=== PATIENT | female | born 1990 | race Caucasian/White ===

== ENCOUNTER 2018-12-12 01:08 | Emergency (ER) | payer OTHER ==
[~2018-12-12] VITALS: Ht 170.2 cm; Wt 100.0 kg
[~2018-12-12 01:08] MED LIST: CLON.5 PO; PROM25 PO
[2018-12-12 02:48] LABS: BASOPHILS % (AUTO) 0.6 % (0.0-2.0); HEMATOCRIT 40.1 % (36-46); HEMOGLOBIN 13.3 g/dL (12.0-16.0); LYMPHOCYTES # (AUTO) 3.1 K/uL (1.0-4.8); LYMPHOCYTES % (AUTO) 33.1 % (22.0-44.0); MEAN CORPUSCULAR HEMOGLOBIN 29.7 pg (26.0-34.0); MEAN CORPUSCULAR HGB CONC 33.2 G/dL (31.0-37.0); MEAN CORPUSCULAR VOLUME 90 fL (80-100); MONOCYTES # (AUTO) 0.5 K/uL (0.1-1.0); MONOCYTES % (AUTO) 5.5 % (2.0-9.0); NEUTROPHILS # (AUTO) 5.6 K/uL (1.8-7.7); NEUTROPHILS % (AUTO) 59.8 % (40.0-70.0); PLATELET COUNT (AUTO) 192 K/uL (150-450); RED BLOOD CELL COUNT(AUTO) 4.47 MIL/uL (4.00-5.20); RED CELL DISTRIBUTION WIDTH 12.9 % (11.5-14.5)
[2018-12-12 02:51] LABS: ANION GAP 8 mmol/L (8-16); CALCIUM, TOTAL 9.4 mg/dL (8.8-10.5); CARBON DIOXIDE 26 mmol/L (22-29); CHLORIDE 105 mmol/L (98-107); GLOMERULAR FILTR. RATE CALC > 60 mL/min (>60); GLUCOSE,RANDOM 101 mg/dL (70-110); POTASSIUM 3.5 mmol/L (3.5-5.1); SODIUM SERUM 139 mmol/L (136-145); UREA NITROGEN, BLOOD 17 mg/dL (7-18)
[2018-12-12] MEDS ORDERED: KETOROLAC TROMETHAMINE 30 MG/ML VIAL IM ONE (03:00)
[2018-12-12] MEDS ORDERED: ONDANSETRON HCL 4 MG TABLET PO ONE (03:00)
[2018-12-12 03:02] LABS: ALANINE AMINOTRANSFERASE 19 U/L (12-78); ALBUMIN 3.6 g/dL (3.4-5.0); ALKALINE PHOSPHATASE 65 U/L (46-116); ASPARTATE AMINOTRANSFERASE 14 U/L (15-37); BILIRUBIN,TOTAL 0.2 mg/dL (0.1-1.0); HCG,QUANTITATIVE < 1 mIU/mL (0-6); LIPASE 151 U/L (73-393); TOTAL PROTEIN, SERUM 7.3 g/dL (6.4-8.2)
[2018-12-12 03:03] VITALS: BP 131/74
== END 2018-12-12 03:41 | disposition home or self-care (01) ==
LOC: EMS 01:10
DX: K52.9 Noninfective gastroenteritis and colitis, unspecified (principal); F12.90 Cannabis use, unspecified, uncomplicated
CPT/HCPCS: 36415; 80053; 83690; 84702; 85025; 96372; 99283; J1885; Q0162

== ENCOUNTER 2022-10-04 23:41 | Emergency (ER) | payer OTHER | END 2022-10-05 00:39 | disposition left against medical advice (07) | LOC: EMS 23:41 | DX: R21 Rash and other nonspecific skin eruption (principal); Z53.21 Procedure and treatment not carried out due to patient leaving prior to being seen by health care provider | CPT/HCPCS: 99281; Z7502 ==

== ENCOUNTER 2024-06-03 14:06 | Emergency (ER) | payer OTHER ==
[~2024-06-03] VITALS: Ht 170.2 cm; Wt 130.0 kg
[2024-06-03] MEDS ORDERED: LOSA-30 PO (14:10)
[2024-06-03 14:12] VITALS: TEMP 99
[2024-06-03] MEDS: FentaNYL CITRATE PF 100 MCG/2 ML VIAL IVP ONE ×3 (15:45→17:52)
[2024-06-03] MEDS: ONDANSETRON HCL 4 MG/2 ML VIAL IVP ONE ×2 (15:45→17:07)
[2024-06-03] MEDS: SODIUM CHLORIDE 0.9% 1,000 ML IV ONE (15:45)
[2024-06-03] MEDS: KETOROLAC TROMETHAMINE 30 MG/ML VIAL IVP ONE ×2 (15:45→20:04)
[2024-06-03 16:23] LABS: BASOPHILS % (AUTO) 0.4 % (0.0-2.0); EOSINOPHILS % (AUTO) 0 % (1.0-6.0); HEMATOCRIT 42.1 % (36-46); HEMOGLOBIN 13.7 g/dL (12.0-16.0); LYMPHOCYTES # (AUTO) 1.1 K/uL (1.0-4.8); LYMPHOCYTES % (AUTO) 8.3 % (22.0-44.0); MEAN CORPUSCULAR HEMOGLOBIN 28.9 pg (26.0-34.0); MEAN CORPUSCULAR HGB CONC 32.5 G/dL (31.0-37.0); MEAN CORPUSCULAR VOLUME 89 fL (80-100); MONOCYTES # (AUTO) 0.2 K/uL (0.1-1.0); MONOCYTES % (AUTO) 1.4 % (2.0-9.0); PLATELET COUNT (AUTO) 222 K/uL (150-450); RED BLOOD CELL COUNT(AUTO) 4.73 MIL/uL (4.00-5.20); RED CELL DISTRIBUTION WIDTH 13.5 % (11.5-14.5); WHITE BLOOD COUNT (AUTO) 13.4 K/uL (4.5-11.0)
[2024-06-03 16:25] LABS: NEUTROPHILS % (AUTO) 89.9 % (40.0-70.0)
[2024-06-03 16:35] LABS: ANION GAP 11 mmol/L (8-16); CALCIUM, TOTAL 8.9 mg/dL (8.8-10.5); CARBON DIOXIDE 26 mmol/L (22-29); CHLORIDE 105 mmol/L (98-107); CREATININE 0.64 mg/dL (0.60-1.30); GLOMERULAR FILTR. RATE CALC > 60 mL/min (>60); GLUCOSE,RANDOM 117 mg/dL (70-110); POTASSIUM 3.6 mmol/L (3.5-5.1); SODIUM SERUM 142 mmol/L (136-145); UREA NITROGEN, BLOOD 13 mg/dL (7-18)
[2024-06-03 16:39] LABS: RBC MORPHOLOGY COMMENT NORMAL RBC MORPH
[2024-06-03 16:47] LABS: ALANINE AMINOTRANSFERASE 32 U/L (12-78); ALBUMIN 3.9 g/dL (3.4-5.0); ALKALINE PHOSPHATASE 97 U/L (46-116); ASPARTATE AMINOTRANSFERASE 18 U/L (15-37); BILIRUBIN,TOTAL 0.3 mg/dL (0.1-1.0); HCG,QUANTITATIVE < 1 mIU/mL (0-6); LIPASE 32 U/L (16-77)
[2024-06-03] MEDS: METOCLOPRAMIDE HCL 5 MG/ML 2 ML VIAL IVP ONE (17:52)
[2024-06-03] MEDS: MetroNIDAZOLE 250 MG TABLET PO ONE (18:57)
[2024-06-03] MEDS: LEVOFLOXACIN 500 MG/D5% WATER 100 ML IV ONE (18:58)
[2024-06-03] MEDS: MetroNIDAZOLE 250 MG/NACL 50 ML IV ONE (20:03)
[2024-06-03] MEDS: DiphenhydrAMINE HCL 50 MG/ML VIAL IVP ONE (20:04)
[2024-06-03] MEDS ORDERED: LEVO-72 PO (20:42)
[2024-06-03] MEDS ORDERED: ONDA-104 PO (20:42)
[2024-06-03] MEDS ORDERED: HYDR-4062 PO (20:42)
[2024-06-03 21:03] VITALS: BP 139/90; PULSE 89; RESP 18; O2SAT 96
== END 2024-06-03 21:46 | disposition home or self-care (01) ==
LOC: EMS 14:06
DX: K52.9 Noninfective gastroenteritis and colitis, unspecified (principal); F12.90 Cannabis use, unspecified, uncomplicated; E66.01 Morbid (severe) obesity due to excess calories; Z79.899 Other long term (current) drug therapy; Z87.19 Personal history of other diseases of the digestive system; Z90.49 Acquired absence of other specified parts of digestive tract; Z98.890 Other specified postprocedural states
CPT/HCPCS: 99285; 74176; 96375; 96365; 96367; 96361; 80048; 80076; 83690; 83735; 84702; 85025; 36415; 93005; 96376; J1200; J3010; J1885; J1956; J2765; J3490; J2405; J7030

== ENCOUNTER 2024-06-05 08:44 | Emergency (ER) | payer OTHER ==
[~2024-06-05] VITALS: Ht 170.2 cm; Wt 129.6 kg
[~2024-06-05 08:44] MED LIST changes: -CLON.5 PO; +HYDR-4062 PO; +LEVO-72 PO; +LOSA-30 PO; +ONDA-104 PO; -PROM25 PO
[2024-06-05 08:46] VITALS: TEMP 98.4
[2024-06-05] MEDS ORDERED: LOSA-382 PO (08:51)
[2024-06-05] MEDS ORDERED: ONDANSETRON HCL 4 MG/2 ML VIAL IVP ONE (09:15)
[2024-06-05 09:36] LABS: BASOPHILS % (AUTO) 0.5 % (0.0-2.0); EOSINOPHILS % (AUTO) 0.2 % (1.0-6.0); HEMATOCRIT 39.9 % (36-46); HEMOGLOBIN 13.4 g/dL (12.0-16.0); LYMPHOCYTES # (AUTO) 1.5 K/uL (1.0-4.8); LYMPHOCYTES % (AUTO) 17.7 % (22.0-44.0); MEAN CORPUSCULAR HEMOGLOBIN 29.9 pg (26.0-34.0); MEAN CORPUSCULAR HGB CONC 33.4 G/dL (31.0-37.0); MEAN CORPUSCULAR VOLUME 89 fL (80-100); MONOCYTES # (AUTO) 0.3 K/uL (0.1-1.0); MONOCYTES % (AUTO) 3.4 % (2.0-9.0); NEUTROPHILS # (AUTO) 6.8 K/uL (1.8-7.7); NEUTROPHILS % (AUTO) 78.2 % (40.0-70.0); PLATELET COUNT (AUTO) 208 K/uL (150-450); RED BLOOD CELL COUNT(AUTO) 4.47 MIL/uL (4.00-5.20); RED CELL DISTRIBUTION WIDTH 13.4 % (11.5-14.5); WHITE BLOOD COUNT (AUTO) 8.7 K/uL (4.5-11.0)
[2024-06-05 09:44] LABS: ANION GAP 10 mmol/L (8-16); CALCIUM, TOTAL 8.3 mg/dL (8.8-10.5); CARBON DIOXIDE 26 mmol/L (22-29); CHLORIDE 103 mmol/L (98-107); CREATININE 0.71 mg/dL (0.60-1.30); GLOMERULAR FILTR. RATE CALC > 60 mL/min (>60); GLUCOSE,RANDOM 109 mg/dL (70-110); POTASSIUM 3.3 mmol/L (3.5-5.1); SODIUM SERUM 139 mmol/L (136-145); UREA NITROGEN, BLOOD 15 mg/dL (7-18)
[2024-06-05 09:55] LABS: ALANINE AMINOTRANSFERASE 26 U/L (12-78); ALBUMIN 3.7 g/dL (3.4-5.0); ALKALINE PHOSPHATASE 88 U/L (46-116); ASPARTATE AMINOTRANSFERASE 20 U/L (15-37); BILIRUBIN,TOTAL 0.5 mg/dL (0.1-1.0); HCG,QUANTITATIVE < 1 mIU/mL (0-6); LIPASE 82 U/L (16-77); TOTAL PROTEIN, SERUM 7.6 g/dL (6.4-8.2)
[2024-06-05] MEDS: METOCLOPRAMIDE HCL 5 MG/ML 2 ML VIAL IVP ONE (10:02)
[2024-06-05] MEDS: RINGERS SOLUTION,LACTATED 1,000 ML IV ONE (10:02)
[2024-06-05] MEDS: MORPHINE SULFATE 4 MG/ML SYRINGE IVP ONE (10:41)
[2024-06-05] MEDS: POTASSIUM CHLORIDE 10% 40 MEQ/30 ML LIQUID UDCUP PO ONE (10:41)
[2024-06-05] MEDS: DICYCLOMINE HCL 10 MG CAPSULE PO ONE (11:20)
[2024-06-05 11:23] VITALS: BP 176/118; PULSE 74; RESP 16; O2SAT 97
[2024-06-05] MEDS: LEVOFLOXACIN 500 MG TABLET PO ONE (13:03)
[2024-06-05] MEDS ORDERED: DICY-1 PO (13:10)
== END 2024-06-05 13:33 | disposition home or self-care (01) ==
LOC: EMS 08:45
DX: K52.9 Noninfective gastroenteritis and colitis, unspecified (principal); F12.90 Cannabis use, unspecified, uncomplicated; E87.6 Hypokalemia; Z90.49 Acquired absence of other specified parts of digestive tract; Z79.899 Other long term (current) drug therapy
CPT/HCPCS: 99284; 96374; 96375; 96361; 80048; 80076; 83690; 84702; 85025; 36415; J2765; J2270; J7120

== ENCOUNTER 2024-09-01 03:48 | Emergency (ER) | payer OTHER ==
[~2024-09-01] VITALS: Ht 170.2 cm; Wt 122.7 kg
[~2024-09-01 03:48] MED LIST changes: +DICY-1 PO; -LOSA-30 PO; +LOSA-382 PO
[2024-09-01 03:53] VITALS: TEMP 98.7
[2024-09-01 04:41] LABS: BASOPHILS % (AUTO) 0.6 % (0.0-2.0); EOSINOPHILS % (AUTO) 0.1 % (1.0-6.0); HEMATOCRIT 43.8 % (36-46); HEMOGLOBIN 14.6 g/dL (12.0-16.0); LYMPHOCYTES # (AUTO) 2.5 K/uL (1.0-4.8); LYMPHOCYTES % (AUTO) 21.4 % (22.0-44.0); MEAN CORPUSCULAR HEMOGLOBIN 29.2 pg (26.0-34.0); MEAN CORPUSCULAR HGB CONC 33.2 G/dL (31.0-37.0); MEAN CORPUSCULAR VOLUME 88 fL (80-100); MONOCYTES # (AUTO) 0.7 K/uL (0.1-1.0); MONOCYTES % (AUTO) 6.1 % (2.0-9.0); NEUTROPHILS # (AUTO) 8.5 K/uL (1.8-7.7); NEUTROPHILS % (AUTO) 71.8 % (40.0-70.0); PLATELET COUNT (AUTO) 258 K/uL (150-450); RED BLOOD CELL COUNT(AUTO) 4.98 MIL/uL (4.00-5.20); RED CELL DISTRIBUTION WIDTH 13.2 % (11.5-14.5); WHITE BLOOD COUNT (AUTO) 11.8 K/uL (4.5-11.0)
[2024-09-01 04:46] LABS: ANION GAP 12 mmol/L (8-16); CALCIUM, TOTAL 9.2 mg/dL (8.8-10.5); CARBON DIOXIDE 26 mmol/L (22-29); CHLORIDE 103 mmol/L (98-107); CREATININE 0.59 mg/dL (0.60-1.30); GLOMERULAR FILTR. RATE CALC > 60 mL/min (>60); GLUCOSE,RANDOM 108 mg/dL (70-110); LIPASE 89 U/L (16-77); POTASSIUM 3.3 mmol/L (3.5-5.1); SODIUM SERUM 141 mmol/L (136-145); UREA NITROGEN, BLOOD 15 mg/dL (7-18)
[2024-09-01 05:01] LABS: BILIRUBIN,DIRECT 0.2 mg/dL (0.00-0.20); BILIRUBIN,TOTAL 0.6 mg/dL (0.1-1.0); TOTAL PROTEIN, SERUM 8.3 g/dL (6.4-8.2)
[2024-09-01] MEDS ORDERED: OMEP-148 PO (05:45)
[2024-09-01] MEDS ORDERED: ONDA-104 PO (05:45)
[2024-09-01] MEDS ORDERED: HYDR-4062 PO (05:45)
[2024-09-01] MEDS ORDERED: MAG30ORA11 PO (05:45)
[2024-09-01] MEDS: HYDROmorphone HCL 2 MG/ML SYRINGE IM ONE (05:56)
[2024-09-01] MEDS: ONDANSETRON HCL 4 MG/2 ML VIAL IM ONE (05:58)
[2024-09-01] MEDS: KETOROLAC TROMETHAMINE 30 MG/ML VIAL IVP ONE (08:19)
[2024-09-01] MEDS: SODIUM CHLORIDE 0.9% 1,000 ML IV ONE (08:19)
[2024-09-01] MEDS: ONDANSETRON HCL 4 MG/2 ML VIAL IVP ONE (08:19)
[2024-09-01 09:21] LABS: APPEARANCE,URINE CLEAR (CLEAR); BILIRUBIN,URINE NEGATIVE (NEGATIVE); COLOR,URINE YELLOW (YELLOW); GLUCOSE, URINE (UA) NEGATIVE (NEGATIVE); LEUKOCYTE ESTERASE ,URINE TRACE (NEGATIVE); NITRATE,URINE NEGATIVE (NEGATIVE); OCCULT BLOOD,URINE NEGATIVE (NEGATIVE); PROTEIN,URINE 30-70 mg/dL (NEGATIVE); UROBILINOGEN,URINE <=1.0 mg/dL (<=1.0)
[2024-09-01 09:48] LABS: BACTERIA,URINE None Seen /HPF (None Seen); RBC,URINE None Seen /HPF (0-2); SQUAMOUS EPITHELIAL CELL,UR Few /LPF (None Seen); WBC,URINE 0-2 /HPF (0-5)
[2024-09-01] MEDS: MORPHINE SULFATE 4 MG/ML SYRINGE IVP ONE (10:52)
[2024-09-01 12:53] VITALS: BP 158/98; PULSE 70; RESP 16; O2SAT 98
[2024-09-02] MEDS ORDERED: HYDR-4061 PO (08:25)
[2024-09-02] MEDS ORDERED: OMEP20CA12 PO (08:25)
[2024-09-02] MEDS ORDERED: ONDA4 PO (08:25)
== END 2024-09-01 12:53 | disposition home or self-care (01) ==
LOC: EMS 03:48
DX: K29.70 Gastritis, unspecified, without bleeding (principal); K85.90 Acute pancreatitis without necrosis or infection, unspecified; F12.90 Cannabis use, unspecified, uncomplicated; Z79.899 Other long term (current) drug therapy; Z90.49 Acquired absence of other specified parts of digestive tract; Z98.890 Other specified postprocedural states
CPT/HCPCS: 99284; 96374; 96375; 96361; 80048; 80076; 81001; 83690; 84703; 85025; 36415; 96372; J1885; J1171; J2270; J2405; J7030

== ENCOUNTER 2024-09-02 08:18 | Inpatient (IN) | payer OTHER ==
[~2024-09-02] VITALS: Ht 167.6 cm; Wt 131.8 kg
[~2024-09-02 08:18] MED LIST changes: +MAG30ORA11 PO; +OMEP-148 PO
[2024-09-02] MEDS ORDERED: HYDR-4061 PO (08:25)
[2024-09-02] MEDS ORDERED: ONDA4 PO (08:25)
[2024-09-02] MEDS ORDERED: OMEP20CA12 PO (08:25)
[2024-09-02 08:56] LABS: BASOPHILS % (AUTO) 0.3 % (0.0-2.0); EOSINOPHILS % (AUTO) 0.5 % (1.0-6.0); HEMATOCRIT 44.7 % (36-46); HEMOGLOBIN 14.7 g/dL (12.0-16.0); LYMPHOCYTES # (AUTO) 2.2 K/uL (1.0-4.8); LYMPHOCYTES % (AUTO) 24.3 % (22.0-44.0); MEAN CORPUSCULAR HGB CONC 32.8 G/dL (31.0-37.0); MEAN CORPUSCULAR VOLUME 88 fL (80-100); MONOCYTES # (AUTO) 0.4 K/uL (0.1-1.0); MONOCYTES % (AUTO) 4.3 % (2.0-9.0); NEUTROPHILS # (AUTO) 6.4 K/uL (1.8-7.7); NEUTROPHILS % (AUTO) 70.6 % (40.0-70.0); PLATELET COUNT (AUTO) 232 K/uL (150-450); RED BLOOD CELL COUNT(AUTO) 5.07 MIL/uL (4.00-5.20); RED CELL DISTRIBUTION WIDTH 13.2 % (11.5-14.5); WHITE BLOOD COUNT (AUTO) 9.1 K/uL (4.5-11.0)
[2024-09-02 09:04] LABS: ANION GAP 11 mmol/L (8-16); CALCIUM, TOTAL 8.9 mg/dL (8.8-10.5); CARBON DIOXIDE 26 mmol/L (22-29); CHLORIDE 103 mmol/L (98-107); CREATININE 0.64 mg/dL (0.60-1.30); GLOMERULAR FILTR. RATE CALC > 60 mL/min (>60); GLUCOSE,RANDOM 112 mg/dL (70-110); POTASSIUM 3.3 mmol/L (3.5-5.1); SODIUM SERUM 140 mmol/L (136-145); UREA NITROGEN, BLOOD 14 mg/dL (7-18)
[2024-09-02 09:10] LABS: BILIRUBIN,DIRECT 0.2 mg/dL (0.00-0.20); BILIRUBIN,TOTAL 0.6 mg/dL (0.1-1.0); TOTAL PROTEIN, SERUM 8.1 g/dL (6.4-8.2)
[2024-09-02 09:15] LABS: HCG,QUANTITATIVE < 1 mIU/mL (0-6); LIPASE 101 U/L (16-77)
[2024-09-02] MEDS: SODIUM CHLORIDE 0.9% 1,000 ML IV ONE ×2 (09:24→16:45)
[2024-09-02] MEDS: HALOPERIDOL LACTATE 5 MG/ML VIAL IVP ONE (09:24)
[2024-09-02] MEDS: MORPHINE SULFATE 2 MG/ML SYRINGE IVP ONE (09:24)
[2024-09-02] MEDS: PANTOPRAZOLE SODIUM 40 MG/VIAL IVP ONE (09:25)
[2024-09-02] MEDS: DICYCLOMINE HCL 10 MG/ML 2 ML VIAL IM ONE (11:15)
[2024-09-02] MEDS: ONDANSETRON HCL 4 MG/2 ML VIAL IVP ONE (15:07)
[2024-09-02] MEDS ORDERED: MAGNESIUM HYDROXIDE SUSPENSION 30 ML UDCUP PO PRN (16:30)
[2024-09-02] MEDS ORDERED: POTASSIUM CHL 10 MEQ/WATER 50 ML IV PRN (16:30)
[2024-09-02] MEDS ORDERED: ZOLPIDEM TARTRATE 5 MG TABLET PO PRN (16:30)
[2024-09-02] MEDS: ONDANSETRON HCL 4 MG/2 ML VIAL IVP PRN (16:45)
[2024-09-02] MEDS: MORPHINE SULFATE 2 MG/ML SYRINGE IVP PRN (16:45)
[2024-09-02 19:29] VITALS: BP 149/85; PULSE 68; RESP 18; TEMP 98.2; O2SAT 95
[2024-09-02 19:52] VITALS: BP 154/77; PULSE 63; RESP 20; TEMP 98; O2SAT 96
[2024-09-02] MEDS: POTASSIUM CHLORIDE 20 MEQ ER TABLET PO PRN (20:11)
[2024-09-03 04:10] VITALS: BP 138/86; PULSE 73; RESP 18; TEMP 98.4; O2SAT 94
[2024-09-03 08:18] VITALS: BP 160/82; PULSE 67; RESP 18; TEMP 98.5; O2SAT 95
[2024-09-03] MEDS: PANTOPRAZOLE SODIUM 40 MG/VIAL IVP SCH (08:59)
[2024-09-03] MEDS: ACETAMINOPHEN 325 MG TABLET PO PRN (10:29)
[2024-09-03 15:39] VITALS: BP 137/106; PULSE 68; RESP 18; TEMP 97.5; O2SAT 98
[2024-09-03] MEDS: LOSARTAN POTASSIUM 50 MG TABLET PO SCH (17:58)
[2024-09-03 19:20] VITALS: BP 137/77; PULSE 60; RESP 18; TEMP 97.7; O2SAT 98
[2024-09-03 21:12] LABS: APPEARANCE,URINE CLEAR (CLEAR); BILIRUBIN,URINE NEGATIVE (NEGATIVE); COLOR,URINE LIGHT YELLOW (YELLOW); GLUCOSE, URINE (UA) NEGATIVE (NEGATIVE); KETONES,URINE NEGATIVE (NEGATIVE); LEUKOCYTE ESTERASE ,URINE NEGATIVE (NEGATIVE); NITRATE,URINE NEGATIVE (NEGATIVE); OCCULT BLOOD,URINE NEGATIVE (NEGATIVE); PH,URINE 7.5 (5.0-8.0); PROTEIN,URINE NEGATIVE (NEGATIVE); SPECIFIC GRAVITIY, URINE 1.009 (1.003-1.030); UROBILINOGEN,URINE <=1.0 mg/dL (<=1.0)
[2024-09-03 21:17] LABS: PH,URINE DRUG SCREEN 7.5 (5.0-8.0)
[2024-09-03 21:18] LABS: ALCOHOL, URINE DRUG SCREEN NEGATIVE (NEGATIVE); AMPHET/METH SCREEN,URINE NEGATIVE (NEGATIVE); BARBITURATE SCREEN, URINE NEGATIVE (NEGATIVE); BENZODIAZEPINES SCREEN,URINE NEGATIVE (NEGATIVE); CANNABINOID SCREEN,URINE POSITIVE (NEGATIVE); COCAINE SCREEN,URINE NEGATIVE (NEGATIVE); METHADONE SCREEN, URINE NEGATIVE (NEGATIVE); OPIATE SCREEN,URINE POSITIVE (NEGATIVE); PHENCYCLIDINE SCREEN,URINE NEGATIVE (NEGATIVE)
[2024-09-04 05:55] VITALS: BP 137/98; PULSE 73; RESP 18; TEMP 98.1; O2SAT 95
[2024-09-04 08:16] VITALS: BP 140/84; PULSE 81; RESP 20; TEMP 97.6; O2SAT 98
[2024-09-04] MEDS ORDERED: ONDA4 PO (13:56)
== END 2024-09-04 15:00 | disposition home or self-care (01) | DRG 425 ==
LOC: EMS 08:18 → EDH 16:19 → 4E 18:25
PROVIDERS: ADMIT Internal Medicine; ATTEND Internal Medicine
DX: E87.6 Hypokalemia (principal); E66.01 Morbid (severe) obesity due to excess calories; R10.9 Unspecified abdominal pain; R11.2 Nausea with vomiting, unspecified; K80.20 Calculus of gallbladder without cholecystitis without obstruction; F12.90 Cannabis use, unspecified, uncomplicated; Z68.42 Body mass index [BMI] 45.0-49.9, adult
CPT/HCPCS: 80048; 80076; 80307; 81003; 83690; 84132; 84702; 85025; 96361; 96372; 96374; 96375; 96376; 99285; G0378; J0500; J1630; J2270; J2405; J2470; J7030; 36415-L1; 36415-TC